=== PATIENT | female | born 1990 | race Two or more races ===

== ENCOUNTER 2018-07-29 08:49 | Emergency (ER) | payer MEDICAID ==
[~2018-07-29] VITALS: Ht 160 cm; Wt 79.4 kg
[2018-07-29 12:09] VITALS: BP 135/82
== END 2018-07-29 12:16 | disposition home or self-care (01) ==
LOC: ER 08:49
DX: O26.893 Other specified pregnancy related conditions, third trimester (principal); K12.2 Cellulitis and abscess of mouth; Z3A.32 32 weeks gestation of pregnancy

== ENCOUNTER 2019-08-25 19:35 | Observation (INO) | payer MEDICAID ==
[~2019-08-25] VITALS: Ht 160 cm; Wt 80.3 kg
[2019-08-25 20:13] LABS: Urine Bacteria NONE SEEN /hpf (None Seen); Urine Blood Negative /uL (Negative); Urine Mucus FEW (None Seen); Urine Specific Gravity 1.023 (1.001-1.035); Urine WBC 84 /hpf (0 - 5)
[2019-08-25 20:27] LABS: Alcohol, Urine < 3.0 mg/dL (0-10); Amphetamine Screen, Urine NEGATIVE (NEGATIVE); Barbiturate Scree,Urine NEGATIVE (NEGATIVE); Benzodiazephine Screen, Urine NEGATIVE (NEGATIVE); Cannabinoid Screen, Urine NEGATIVE (NEGATIVE); Cocaine Screen, Urine NEGATIVE (NEGATIVE); Opiate Scree,Urine NEGATIVE (NEGATIVE); Phencyclidine Screen, Urine NEGATIVE (NEGATIVE)
[2019-08-25] MEDS ORDERED: LACTATED RINGER'S 1,000 ML IV ONE ×2 (20:30→21:15)
[2019-08-25 21:48] LABS: Basophils # (auto) 0 10 ^3/uL (0-0.2); Basophils % (auto) 0.2 % (0.0-2.0); Eosinophils # (auto) 0 10 ^3/uL (0-0.8); Eosinophils % (auto) 0.1 % (0.0-7.0); Hematocrit 30.7 % (36.0-46.0); Hemoglobin 10.4 g/dL (12.2-16.2); Lymphocytes # (auto) 0.6 10 ^3/uL (0.4-5.4); Lymphocytes % (auto) 11.8 % (10.0-50.0); Mean Corpuscular Hemoglobin 29.4 pg (28.0-32.0); Mean Corpuscular Hgb Conc. 33.8 g/dL (32.0-36.0); Monocytes # (auto) 0.5 10 ^3/uL (0-1.3); Monocytes % (auto) 9.9 % (0.0-12.0); Neutrophils # (auto) 3.7 10 ^3/uL (1.6-8.6); Platelet Count (auto) 107 10^3/uL (140-450); Red Blood Cells 3.53 10^6/uL (4.0-5.20); Red Cell Distribution Width 14.7 % (11.8-14.3); White Blood Cell 4.8 10^3/uL (4.4-10.8)
[2019-08-25 22:08] LABS: Albumin 2.3 g/dL (3.4-5.0); Calcium 7.3 mg/dL (8.5-10.1)
[2019-08-25 22:11] LABS: BUN/Creatinine Ratio 8.8; Bilirubin, Total 0.4 mg/dL (0.2-1.0); Total Protein 5.9 g/dL (6.4-8.2)
[2019-08-25] MEDS ORDERED: ceFAZolin 1GM/50ML 50 ML IV ONE (22:45)
[2019-08-25] MEDS ORDERED: ACETAMINOPHEN IV 1000 MG/100ML (10MG/ML) IV ONE (22:45)
[2019-08-25] MEDS ORDERED: ACETAMINOPHEN IV 100 ML IV ONE (22:48)
[2019-08-25] MEDS ORDERED: POTASSIUM CHL 20 Meq TABLET PO ONE (23:15)
[2019-08-26] MEDS ORDERED: NIFEdipine 10 MG CAP PO SCH (02:00)
[2019-08-26] MEDS ORDERED: NIFEdipine 10 MG CAP PO PRN (03:45)
[2019-08-26] MEDS ORDERED: MEPERIDINE HCL (50 MG/ML) 1 ML VIAL IV ONE (05:00)
[2019-08-26] MEDS ORDERED: LACTATED RINGER'S 1,000 ML IV SCH (06:30)
[2019-08-26] MEDS: ceFAZolin 1GM/50ML 50 ML IV SCH ×3 (07:16→22:44)
[2019-08-26] MEDS: ACETAMINOPHEN 325 MG TAB PO PRN ×2 (08:48→15:44)
[2019-08-26] MEDS: LACTATED RINGER'S 1,000 ML IV SCH (15:36)
[2019-08-26] MEDS ORDERED: TERBUTALINE SULFATE 1 MG/ML 1ML VIAL SC SCH (19:30)
[2019-08-26] MEDS ORDERED: TERBUTALINE SULFATE 1 MG/ML 1ML VIAL SC ONE (19:32)
[2019-08-26] MEDS ORDERED: ACETAMINOPHEN IV 1000 MG/100ML (10MG/ML) IV PRN (22:30)
[2019-08-26] MEDS ORDERED: ACETAMINOPHEN IV 1000 MG/100ML (10MG/ML) IV ONE (23:17)
[2019-08-27] MEDS: ACETAMINOPHEN 325 MG TAB PO PRN (04:52)
[2019-08-27] MEDS: ceFAZolin 1GM/50ML 50 ML IV SCH (06:58)
[2019-08-27] MEDS: LACTATED RINGER'S 1,000 ML IV SCH (07:00)
[2019-08-27] MEDS ORDERED: PENICILLIN G POT 5MIL/D5 50ML 50 ML IV ONE (07:30)
[2019-08-27 08:09] LABS: Basophils # (auto) 0 10 ^3/uL (0-0.2); Basophils % (auto) 0.3 % (0.0-2.0); Eosinophils # (auto) 0 10 ^3/uL (0-0.8); Hematocrit 30.8 % (36.0-46.0); Hemoglobin 10.3 g/dL (12.2-16.2); Lymphocytes # (auto) 0.5 10 ^3/uL (0.4-5.4); Lymphocytes % (auto) 13.3 % (10.0-50.0); Mean Corpuscular Hemoglobin 29.3 pg (28.0-32.0); Mean Corpuscular Hgb Conc. 33.4 g/dL (32.0-36.0); Mean Corpuscular Volume 87.9 fL (80.0-100.0); Monocytes # (auto) 0.2 10 ^3/uL (0-1.3); Monocytes % (auto) 5.7 % (0.0-12.0); Neutrophils % (auto) 80.7 % (37.0-80.0); Platelet Count (auto) 107 10^3/uL (140-450); Red Blood Cells 3.51 10^6/uL (4.0-5.20); White Blood Cell 3.7 10^3/uL (4.4-10.8)
[2019-08-27 08:31] LABS: Albumin 2.3 g/dL (3.4-5.0); Calcium 7.5 mg/dL (8.5-10.1); Potassium 3.2 mmol/L (3.5-5.1)
[2019-08-27 08:35] LABS: BUN/Creatinine Ratio 4.1; Bilirubin, Total 0.5 mg/dL (0.2-1.0); Total Protein 5.9 g/dL (6.4-8.2)
[2019-08-27] MEDS ORDERED: POTASSIUM CHL 20 Meq TABLET PO ONE (09:30)
[2019-08-27] MEDS: ACETAMINOPHEN 325 MG TAB PO SCH ×4 (09:38→21:57)
[2019-08-27] MEDS: PIPERACILLIN-TAZOB 3.375GM 100 ML IV SCH ×2 (11:45→17:34)
[2019-08-27] MEDS ORDERED: PENICILLIN G POTASSIUM 2,500,000 UNITS in D5W 5% 50 ML IV SCH (16:00)
== END 2019-08-28 00:10 | disposition home or self-care (01) | DRG 566 ==
LOC: LDRP 19:35
PROVIDERS: ADMIT Obstetrics & Gynecology; ATTEND Obstetrics & Gynecology
DX: O98.513 Other viral diseases complicating pregnancy, third trimester (principal); U07.1 COVID-19; O36.8330 Maternal care for abnormalities of the fetal heart rate or rhythm, third trimester, not applicable or unspecified; O23.03 Infections of kidney in pregnancy, third trimester; N13.6 Pyonephrosis; O75.2 Pyrexia during labor, not elsewhere classified; O99.613 Diseases of the digestive system complicating pregnancy, third trimester; K80.20 Calculus of gallbladder without cholecystitis without obstruction; O99.283 Endocrine, nutritional and metabolic diseases complicating pregnancy, third trimester; E86.0 Dehydration; Z3A.32 32 weeks gestation of pregnancy
CPT/HCPCS: 36415; 59025; 76700; 76805; 76818; 80053; 80307; 81001; 81002; 85025; 87040; 87086; 94760; 96361; 96365; 96366; 96367; 96372; 96375; 96376; G0378; J0131; J0690; J2540; J2543; J3105; U0003; J7060

== ENCOUNTER 2021-07-17 17:46 | Emergency (ER) | payer MEDICAID ==
[~2021-07-17] VITALS: Ht 160 cm; Wt 66.7 kg
[2021-07-17 19:17] LABS: Basophils # (auto) 0 10 ^3/uL (0-0.2); Basophils % (auto) 0.6 % (0.0-2.0); Eosinophils # (auto) 0.2 10 ^3/uL (0-0.8); Eosinophils % (auto) 2.9 % (0.0-7.0); Hematocrit 38.4 % (36.0-46.0); Hemoglobin 13.2 g/dL (12.2-16.2); Lymphocytes # (auto) 1.5 10 ^3/uL (0.4-5.4); Lymphocytes % (auto) 23.7 % (10.0-50.0); Mean Corpuscular Hemoglobin 31.1 pg (28.0-32.0); Mean Corpuscular Hgb Conc. 34.4 g/dL (32.0-36.0); Mean Corpuscular Volume 90.5 fL (80.0-100.0); Monocytes # (auto) 0.4 10 ^3/uL (0-1.3); Monocytes % (auto) 6.8 % (0.0-12.0); Neutrophils # (auto) 4.1 10 ^3/uL (1.6-8.6); Nucleated Red Blood Cells % 0.1 %; Red Blood Cells 4.24 10^6/uL (4.0-5.20); Red Cell Distribution Width 13.5 % (11.8-14.3); White Blood Cell 6.3 10^3/uL (4.4-10.8)
[2021-07-17 19:29] LABS: Albumin 3.6 g/dL (3.4-5.0); Calcium 8.3 mg/dL (8.5-10.1); Potassium 4.3 mmol/L (3.5-5.1)
[2021-07-17 19:31] LABS: BUN/Creatinine Ratio 15.9
[2021-07-17 19:33] LABS: Bilirubin, Total 0.6 mg/dL (0.2-1.0); Total Protein 7.1 g/dL (6.4-8.2)
[2021-07-17 20:46] LABS: Urine Bacteria FEW /hpf (None Seen); Urine Blood Negative /uL (Negative); Urine Mucus FEW (None Seen); Urine Specific Gravity 1.025 (1.001-1.035); Urine WBC 89 /hpf (0 - 5)
[2021-07-17] MEDS ORDERED: NITR-87 PO (21:06)
[2021-07-17] MEDS ORDERED: cefTRIAXone W LIDOCAINE 1 GM IM IM ONE (21:15)
[2021-07-17 22:30] VITALS: BP 142/80
== END 2021-07-17 22:34 | disposition home or self-care (01) ==
LOC: ER 17:46
DX: N39.0 Urinary tract infection, site not specified (principal); E03.9 Hypothyroidism, unspecified
CPT/HCPCS: 36415; 80053; 81001; 83690; 85025; 96372; 99283; J0696

== ENCOUNTER 2024-11-27 04:46 | Emergency (ER) | payer MEDICAID ==
[~2024-11-27] VITALS: Ht 160 cm; Wt 77.2 kg
[~2024-11-27 04:46] MED LIST: NITR-87 PO
[2024-11-27 04:47] VITALS: TEMP 98
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
[2024-11-27 05:12] VITALS: BP 134/90; PULSE 87; RESP 22
[2024-11-27] MEDS: HYDROcodone-ACET 10/325MG TAB PO ONE (05:18)
[2024-11-27] MEDS: KETOROLAC TROMETH 60MG/2ML VIAL IM ONE (05:19)
[2024-11-27 05:23] VITALS: O2SAT 98
--- NOTE | 2024-11-27 05:50 | DVH ---
INDICATION: LOW BACK PAIN COMPARISON: None TECHNIQUE: 2 views of the lumbar spine were obtained. FINDINGS: Loss of normal lumbar lordosis. The lumbar vertebral alignment is normal. The intervertebral disc spaces are well-maintained. No significant facet arthropathy is noted. No acute fracture, vertebral compression deformity or aggressive osseous lesions. The paravertebral soft tissues are grossly unremarkable. IMPRESSION: 1. No acute fracture.
[2024-11-27 06:28] LABS: Urine Protein, UAD Negative (Negative)
[2024-11-27 07:52] LABS: Amphetamine Screen, Urine Neg (NEGATIVE); Barbiturate Scree,Urine Neg (NEGATIVE); Benzodiazephine Screen, Urine Neg (NEGATIVE); Cannabinoid Screen, Urine Neg (NEGATIVE); Cocaine Screen, Urine Neg (NEGATIVE); Opiate Scree,Urine Neg (NEGATIVE); Phencyclidine Screen, Urine Neg (NEGATIVE)
== END 2024-11-27 07:00 | disposition home or self-care (01) ==
LOC: ER 04:46
DX: M54.42 Lumbago with sciatica, left side (principal); M54.41 Lumbago with sciatica, right side; Z79.899 Other long term (current) drug therapy
CPT/HCPCS: 36415; 72100; 80307; 81001; 84443; 84481; 96372; 99284; J1100; J1885